=== PATIENT | female | born 1985 ===

== ENCOUNTER → 2017-06-09 | Outpatient (REF) | payer SELFPAY ==
[2017-06-09 14:01] LABS: COMPLEMENT C3 133 MG/DL (90-180); COMPLEMENT C4 27.1 MG/DL (10-40); FERRITIN 2 NG/ML (8-252); IRON (FE) 15 UG/DL (50-170); PERCENT SATURATION 2.6 % (13.2-45.0); TOTAL IRON BINDING CAPACITY 585 UG/DL (250-450)
[2017-06-09 14:12] LABS: TOTAL PROTEIN,RANDOM URINE 28.3 MG/DL (0.0-12.0)
[2017-06-13 00:07] LABS: ANCA-ATYPICAL <1:20 titer (Neg:<1:20); ANTI DOUBLE STRAND-DNA AB 1 IU/mL (0-9); ANTINUCLEAR ANTIBODIES DIRECT Negative (Negative); CYTOPLASMIC NEUTROP AB ANCA-C <1:20 titer (Neg:<1:20); PERINUCLEAR AB ANCA-P <1:20 titer (Neg:<1:20)
[2017-06-13 14:13] LABS: HEMOGLOBIN A 98.4 % (96.4-98.8); HEMOGLOBIN A2 1.6 % (1.8-3.2); HGB SOLUBILITY Negative (Negative)
== END ==
LOC: M LAB REF 13:07
DX: R80.9 Proteinuria, unspecified (principal); I10 Essential (primary) hypertension; D64.9 Anemia, unspecified
CPT/HCPCS: 83021